=== PATIENT | male | born 1970 ===

== ENCOUNTER 2018-03-22 10:45 | Emergency (ER) | payer OTHER ==
[~2018-03-22] VITALS: Ht 175.3 cm; Wt 105.2 kg
[2018-03-22] MEDS ORDERED: SYNTHROID75 MCG PO (10:51)
[2018-03-22] MEDS ORDERED: LISINOPRIL10 MG PO (10:52)
== END 2018-03-22 15:52 | disposition home or self-care (01) ==
LOC: ER 10:45
DX: T78.3XXA Angioneurotic edema, initial encounter (principal)